=== PATIENT | male | born 1995 | race Hispanic/Latino ===

== ENCOUNTER 2022-09-26 10:39 | Inpatient (IN) | payer SELFPAY ==
[2022-09-26] MEDS ORDERED: Ondansetron PF 4 MG/2 ML Vial ONE ×2 (11:09→14:42)
[2022-09-26] MEDS ORDERED: Morphine 4 MG/ML VIAL ONE (11:09)
[2022-09-26] MEDS ORDERED: Ketorolac Tromethamine 30 MG/ML VIAL ONE ×2 (11:09→14:42)
[2022-09-26 11:28] LABS: #Monocytes 1.4 thou/uL (0.11-0.59); #Neutrophils 13.2 thou/uL (1.40-6.50); %Basophils 0.2 % (0.0-1.0); %Eosinophils 0.1 % (0.0-10.0); %Lymphocytes 15.7 % (21.0-51.0); %Monocytes 7.8 % (0.0-10.0); %Neutrophils 75.6 % (42.0-75.0); Hemoglobin 14.7 g/dL (14.0-18.0); Mean Corpuscular HGB CONC 34.5 g/dL (32.0-36.0); Mean Corpuscular Hemoglobin 29.3 pg (27.0-31.0); Mean Corpuscular Volume 84.9 fl (78.0-98.0); Mean Platelet Volume 10.5 fL (7.4-10.4); Platelet Count 292 10x3/uL (130-400); RBC Distribution Width 12.5 % (11.5-14.5); Red Blood Cell (RBC) Count 5.02 mill/uL (4.70-6.10); White Blood Cell (WBC) Count 17.5 10x3/uL (4.8-10.8)
[2022-09-26] MEDS ORDERED: Iopamidol-370 76% 500 ML MDV (1 ML CHARGE) ONE (11:46)
[2022-09-26 11:51] LABS: ALT (SGPT) 20 U/L (8-55); AST (SGOT) 13 U/L (5-34); Albumin 4.6 g/dL (3.5-5.0); Alkaline Phosphatase 123 U/L (40-110); Anion Gap 15 mmol/L (10-20); BUN (Urea Nitrogen) 13 mg/dL (8.9-20.6); Bilirubin, Total 0.9 mg/dL (0.2-1.2); Calc. Creatinine Clearance 0 mL/min (70-130); Calcium 9.3 mg/dL (7.8-10.44); Carbon Dioxide 22 mmol/L (22-29); Chloride 103 mmol/L (98-107); Estimated GFR 123; Globulin 3.1 g/dL (2.4-3.5); Glucose 128 mg/dL (70-105); Lipase 28 U/L (8-78); Potassium 3.6 mmol/L (3.5-5.1); Protein, Total 7.7 g/dL (6.0-8.3); Sodium 136 mmol/L (136-145)
[2022-09-26] MEDS ORDERED: Piperacillin/Tazobactam 4.5 GM VIAL ONE (12:48)
[2022-09-26 13:37] VITALS: BMI 31.3
[2022-09-26] MEDS ORDERED: Glucagon 1 MG/ML KIT IM PRN (14:24)
[2022-09-26] MEDS ORDERED: hydrALAZINE 20 MG/ML VIAL SLOW IVP PRN (14:24)
[2022-09-26] MEDS ORDERED: Promethazine HCl 25 MG/ML VIAL IM PRN ×2 (14:24→16:37)
[2022-09-26] MEDS ORDERED: Ipratropium/Albuterol 3 ML NEB NEB PRN (14:24)
[2022-09-26] MEDS ORDERED: Morphine 2 MG/ML VIAL SLOW IVP PRN (14:24)
[2022-09-26] MEDS ORDERED: Dextrose 5% in Water 1,000 ML IV PRN (14:24)
[2022-09-26] MEDS ORDERED: Dextrose 50% Abboject 50 ML SYRINGE SLOW IVP PRN (14:24)
[2022-09-26] MEDS ORDERED: Piperacillin/Tazobactam 3.375 GM in Sodium Chloride 0.9% 100 ML IVPB SCH (14:30)
[2022-09-26 14:39] LABS: Bacteria/HPF None Seen HPF (None Seen); Bilirubin Negative (Negative); Blood, Urine Negative (Negative); CAUTI Indications for Culture Pelvic or flank pain; Clarity Clear (Clear); Glucose, Urine (Dipstick) Normal (Negative); Ketone, Urine 10 mg/dL (Negative); Leukocyte Negative Leu/uL (Negative); Nitrite Negative (Negative); Protein, Urine (Dipstick) 10 mg/dL (Neg-Trace); Squamous Epithelial 0-3 HPF (0-3); Urobilinogen Normal mg/dL (Less than 2); WBC/HPF 0-3 HPF (0-3); pH, Urine 6.5 (5.0-9.0)
[2022-09-26 14:41] LABS: Specific Gravity, Urine Greater than 1.060 (1.002-1.036)
[2022-09-26] MEDS ORDERED: Lidocaine 1% PF 5 ML VIAL ONE (14:42)
[2022-09-26] MEDS ORDERED: PROPOFOL 200 MG/20 ML VIAL ONE (14:42)
[2022-09-26] MEDS ORDERED: Rocuronium Bromide 10 MG/ML (10ML VIAL) ONE (14:42)
[2022-09-26] MEDS ORDERED: Succinylcholine 200 MG/10 ml SYRINGE FS ONE (14:42)
[2022-09-26] MEDS ORDERED: Dexamethasone 20 MG/5 ML VIAL ONE (14:42)
[2022-09-26 14:43] LABS: Urine Culture Reflex No No
[2022-09-26] MEDS ORDERED: D5 1/2 NS w/20 mEq KCL 1,000 ML ONE (15:40)
[2022-09-26] MEDS ORDERED: Meperidine HCl/PF 25 MG/ML VIAL SLOW IVP PRN (16:37)
[2022-09-26] MEDS ORDERED: HYDROmorphone 2 MG/ML VIAL SLOW IVP PRN (16:37)
[2022-09-26] MEDS ORDERED: Ondansetron HCl/PF 4 MG/2 ML Vial IVP PRN (16:37)
[2022-09-26] MEDS: D5 1/2 NS w/20 mEq KCL 1,000 ML IV SCH (16:48)
[2022-09-26] MEDS: Ketorolac Tromethamine 30 MG/ML VIAL IVP SCH (17:57)
[2022-09-26] MEDS: HYDROcodone/Acetaminophen 10/325 mg Tablet PO PRN (20:19)
[2022-09-27] MEDS: D5 1/2 NS w/20 mEq KCL 1,000 ML IV SCH ×2 (00:46→11:18)
[2022-09-27] MEDS: Ketorolac Tromethamine 30 MG/ML VIAL IVP SCH ×5 (00:46→23:00)
[2022-09-27] MEDS: HYDROcodone/Acetaminophen 10/325 mg Tablet PO PRN ×2 (05:37→14:35)
[2022-09-27] MEDS ORDERED: Piperacillin/Tazobactam 3.375 GM in Sodium Chloride 0.9% 100 ML IVPB SCH (09:45)
[2022-09-27] MEDS: Piperacillin/Tazobactam 3.375 GM in Sodium Chloride 0.9% 100 ML IVPB SCH ×2 (14:40→22:59)
[2022-09-27] MEDS ORDERED: Morphine 2 MG/ML VIAL SLOW IVP PRN (16:40)
[2022-09-27] MEDS ORDERED: Ondansetron ODT 8 MG TAB PO PRN (16:40)
[2022-09-27] MEDS ORDERED: Acetaminophen 500 MG TAB PO SCH (16:45)
[2022-09-27] MEDS: Ondansetron PF 4 MG/2 ML Vial IVP PRN (16:56)
[2022-09-27] MEDS: Acetaminophen 500 MG TAB PO SCH (23:01)
[2022-09-28] MEDS: Piperacillin/Tazobactam 3.375 GM in Sodium Chloride 0.9% 100 ML IVPB SCH ×3 (05:07→21:27)
[2022-09-28] MEDS: Ketorolac Tromethamine 30 MG/ML VIAL IVP SCH ×4 (05:08→23:50)
[2022-09-28] MEDS: Acetaminophen 500 MG TAB PO SCH ×4 (05:08→23:51)
[2022-09-28] MEDS: D5 1/2 NS w/20 mEq KCL 1,000 ML IV SCH ×2 (05:09→18:52)
[2022-09-28] MEDS: Ondansetron PF 4 MG/2 ML Vial IVP PRN ×3 (05:10→23:50)
[2022-09-28 05:58] LABS: #Eosinphils 0.1 thou/uL (0.0-0.7); #Neutrophils 8.1 thou/uL (1.40-6.50); %Basophils 0.3 % (0.0-1.0); %Eosinophils 0.6 % (0.0-10.0); %Lymphocytes 24.6 % (21.0-51.0); %Monocytes 8.1 % (0.0-10.0); %Neutrophils 65.8 % (42.0-75.0); Hemoglobin 12.6 g/dL (14.0-18.0); Mean Corpuscular HGB CONC 32.9 g/dL (32.0-36.0); Mean Corpuscular Hemoglobin 29.3 pg (27.0-31.0); Mean Corpuscular Volume 89.1 fl (78.0-98.0); Mean Platelet Volume 10.4 fL (7.4-10.4); Platelet Count 279 10x3/uL (130-400); White Blood Cell (WBC) Count 12.2 10x3/uL (4.8-10.8)
[2022-09-28] MEDS ORDERED: traMADol HCl 50 MG TAB PO PRN (14:21)
[2022-09-29] MEDS: Piperacillin/Tazobactam 3.375 GM in Sodium Chloride 0.9% 100 ML IVPB SCH (05:20)
[2022-09-29] MEDS: Acetaminophen 500 MG TAB PO SCH ×2 (05:21→12:14)
[2022-09-29] MEDS: Ketorolac Tromethamine 30 MG/ML VIAL IVP SCH (05:22)
[2022-09-29] MEDS ORDERED: Amoxicillin/Potassium Clav 875 MG TAB PO SCH (09:00)
[2022-09-29] MEDS ORDERED: Ibuprofen 200 MG TAB PO SCH (14:00)
[2022-09-29 15:15] VITALS: BP 127/84; TEMP 97.8
== END 2022-09-29 17:27 | disposition home or self-care (01) | DRG 339 ==
LOC: ERS 10:39 → ERHOLD 12:56 → SURG A 15:01
PROVIDERS: ADMIT Surgery; ATTEND Surgery
PROC: 0DTJ0ZZ Resection of Appendix, Open Approach (ICD-10-PCS; principal; 2022-09-26)
PROC: 0WJG4ZZ Inspection of Peritoneal Cavity, Percutaneous Endoscopic Approach (ICD-10-PCS; 2022-09-26)
DX: K35.33 Acute appendicitis with perforation, localized peritonitis, and gangrene, with abscess (principal); K56.7 Ileus, unspecified; I10 Essential (primary) hypertension
CPT/HCPCS: 36415; 74177; 80053; 81001; 83690; 85025; 88304; 96361; 96365; 96375; A4649; J1100; J1885; J2270; J2272; J2405; J2543; J2704; J3480; J3490; Q9967